=== PATIENT | male | born 1975 | race Caucasian/White ===

== ENCOUNTER → 2017-11-05 | Outpatient (CLI) | payer OTHER | LOC: M.ULTRA 11:00 | DX: K76.0 Fatty (change of) liver, not elsewhere classified (principal); Z90.49 Acquired absence of other specified parts of digestive tract ==

== ENCOUNTER → 2018-01-07 | Outpatient (CLI) | payer OTHER ==
--- NOTE | 2018-01-16 08:46 | SLEEP ---
[address] [address] SLEEP STUDY REPORT Name: SAMY GARAY Room: [facility]#: [id number] Admission: 01/07/18 Attend Phys: Louise Sosa MD Discharge: Date of : 77 Report #: [id number] THIS REPORT FOR: //name// CC: Louise Sosa This study has been reviewed in its entirety by a board certified sleep specialist REFERRING PHYSICIAN: Louise Sosa MD INDICATION: Hypersomnia, Ballantine sleepiness score of 15, tiredness and fatigue. METHOD: The following parameters were monitored: Frontal, central and occipital EEG; electro-oculogram; submentalis EMG; nasal and oral airflow; anterior tibialis EMG; body position and electrocardiogram. Additionally, thoracic and abdominal movements were recorded by inductance plethysmography. Oxygen saturation was monitored using pulse oximeter. The tracing was scored using 30-second epochs. Hypopneas were scored per the [employer] definition using the 4% desaturation criteria. SLEEP SUMMARY: Total recording time 472 minutes. Total sleep time 139 minutes. Sleep efficiency was low at 29.6%. Latency to sleep was 161 minutes. SLEEP STAGING: Stage N1 33.7% of total sleep time, stage N2 48.7% of total sleep time, stage N3 17.6% of total sleep time, stage REM none recorded. RESPIRATORY SUMMARY: During the study, the patient had 37 obstructive apneas, no mixed or central apneas and he had 54 hypopneas with overall apnea-hypopnea index of 39.1. It was noticed the respiratory events were more severe in the supine position. OXIMETRY DATA: The average O2 saturation was 96%. The lowest O2 saturation recorded with respiratory events was 84%. The average heart rate during the study was 66.9 beats per minute. No arrhythmias were recorded. PERIODIC LIMB MOVEMENT: PLMS index was 5.6 per hour. IMPRESSION: 1. Severe obstructive sleep apnea with apnea-hypopnea index 39.1 per hour and oxygen saturation to a richy of 84%. 2. Poor sleep efficiency, multiple nighttime awakening and interrupted sleep. RECOMMENDATIONS: 1. If there is no contraindication, can consider auto-CPAP at a pressure of 4-20 cm of water with close clinical followup [place] [id number] SLEEP STUDY REPORT Name: SAMY GARAY Room: [facility]#: [id number] Admission: 01/07/18 Attend Phys: Louise Sosa MD Discharge: Date of : 77 Report #: [id number] 2. Otherwise, can consider a repeat sleep study for the sole purpose of CPAP titration to determine the CPAP pressure that controls the patient's obstructive sleep apnea. 3. With the history of sleepiness. would recommend avoiding driving or operating machinery while drowsy. 4. Avoid alcohol, sedatives, hypnotics close to bedtime. 5. Recommend maintaining ideal body weight. <ELECTRONICALLY SIGNED> By: South Magallon MD 01/16/18 [id number] Magallon MD /nt
== END ==
LOC: M.SLEEPLAB 19:59
DX: G47.33 Obstructive sleep apnea (adult) (pediatric) (principal)